=== PATIENT | male | born 1980 | race Caucasian/White ===

== ENCOUNTER 2020-08-20 10:43 | Emergency (ER) | payer OTHER, SELFPAY ==
[2020-08-20 11:08] VITALS: BP 135/96; PULSE 89; RESP 16; TEMP 36.9
--- NOTE | 2020-08-20 11:37 | ED.SKABFB ---
HPI - Skin/Abscess/Foreign Bdy General Chief complaint: Skin/Abscess/Foreign Body Stated complaint: Spider bite - 1 week ago Time Seen by Provider: 08/20/20 10:52 Source: patient Mode of arrival: ambulatory Limitations: no limitations History of Present Illness HPI narrative: Patient is a 39-year-old male who presents complaining of insect bite to right lower back. He reports mowing lawn and feeling a bite. He reports increased redness and swelling over the past 2 days. Patient concerned because of complex medical history which includes diabetes Related Data Allergies Allergy/AdvReac Type Severity Reaction Status Date / Time Sulfa (Sulfonamide Allergy Severe DIFFUSE Verified 04/24/18 12:25 Antibiotics) RASH, DIFFICULTY BREATHING Penicillins Allergy Swelling Verified 08/20/20 11:11 Review of Systems Review of Systems: Narrative: CONSTITUTIONAL: Denies fever, chills, or sweats. EYES: Denies visual changes, redness, or discharge. ENT: Denies rhinorrhea, congestion, sore throat, or otalgia. CARDIOVASCULAR: Denies chest pain, palpitations, or edema. RESPIRATORY: Denies cough or dyspnea. GASTROINTESTINAL: Denies abdominal pain, nausea, vomiting, or diarrhea. GENITOURINARY: Denies dysuria or hematuria. SKIN: Insect bite to right lower back MUSCULOSKELETAL: Denies back pain, joint pain, or myalgia. NEUROLOGIC: Denies headache, numbness, dizziness, or weakness. PSYCHIATRIC: Denies anxiety or depression. [facility] Past Medical History Medical History Angina pectoris Anxiety Back pain Diabetes Elevated cholesterol GERD (gastroesophageal reflux disease) HTN (hypertension) Opiate use Peripheral neuropathy Surgical History Surgical History H/O cardiac catheterization History of appendectomy History of heart artery stent Family History Family History Other Alcohol abuse Arthritis Cancer Cerebrovascular accident Depression Heart disease Lung cancer Social History Social History (Updated 08/20/20 @ 12:26 by GRIS Pizarro) Smoking status: Current every day smoker Tobacco type: cigarettes Alcohol intake: never Substance use: current Substance use type: marijuana Living arrangements: with family Comments At the time of signature, I have reviewed and agree with nursing past medical, surgical, social, and family history unless otherwise noted. Please see nursing chart for further information. There is no relevant family history pertinent to the presenting complaint. Exam Narrative: Exam Narrative: GENERAL: Well-appearing, well-nourished, and in no acute distress. HEAD: Normocephalic, atraumatic. EYES: EOMI. No redness or drainage. Conjunctiva are normal. ENT: Mucous membranes pink and moist. CHEST: No respiratory distress. Clear to auscultation. HEART: Regular rate and rhythm. EXTREMITIES: Normal range of motion. No edema. SKIN: Approximately 2 cm area of erythema with small amount of drainage noted to right lumbar spine. NEURO: No focal deficits. Alert and oriented x3. Gait steady. PSYCH: Normal affect. No signs of depression or anxiety. Course Vital Signs Vital signs: Vital Signs Temperature 36.9 C 08/20/20 11:08 Pulse Rate 89 08/20/20 11:08 Respiratory Rate 16 08/20/20 11:08 Blood Pressure 135/96 H 08/20/20 11:08 Temperature 36.9 C 08/20/20 11:08 Pulse Rate 89 08/20/20 11:08 Respiratory Rate 16 08/20/20 11:08 Blood Pressure 135/96 H 08/20/20 11:08 Reviewed. Patient has been instructed to follow-up with his PCP regarding his blood pressure. MDM - Skin/Abscess/Foreign Bdy MDM Narrative Medical decision making narrative: Patient is small area of erythema to right lumbar spine, small amount of drainage noted, most likely insect bite. Patient be started on cephalexin at th
[2020-08-20] MEDS: TETANUS,DIPHTHERIA,AC PERTUSSIS ADULT (0.5 ML) BOOSTRIX IM (12:11)
[2020-08-20 12:12] VITALS: BP 136/86; PULSE 84; RESP 15; O2SAT 98
[2020-08-20 13:10] VITALS: BP 134/87; PULSE 88; RESP 17; O2SAT 99
== END 2020-08-20 13:12 | disposition home or self-care (01) ==
PROVIDERS: Emergency Provider Nurse Practitioner; PCP Internal Medicine
DX: S30.860A Insect bite (nonvenomous) of lower back and pelvis, initial encounter (principal); E11.9 Type 2 diabetes mellitus without complications; I10 Essential (primary) hypertension; F17.210 Nicotine dependence, cigarettes, uncomplicated; Z23 Encounter for immunization; W57.XXXA Bitten or stung by nonvenomous insect and other nonvenomous arthropods, initial encounter
CPT/HCPCS: 90471; 90715; 99283

== ENCOUNTER 2020-08-27 20:59 | Emergency (ER) | payer OTHER, SELFPAY ==
[2020-08-27 21:04] VITALS: BP 126/99; PULSE 149; RESP 14; O2SAT 97
--- NOTE | 2020-08-27 21:20 | ED.WOUNDLAC ---
HPI - Wound/Laceration General Chief Complaint: Wound/Laceration Stated Complaint: Hand lac Time Seen by Provider: 08/27/20 21:09 Source: patient Mode of arrival: ambulatory Limitations: no limitations History of Present Illness HPI narrative: Patient is a 39-year-old male complaining of accidentally cutting his hand on sharp metal object while working. Patient denies any other pain or injuries. Patient states that he recently had tetanus shot. Related Data Allergies Allergy/AdvReac Type Severity Reaction Status Date / Time Sulfa (Sulfonamide Allergy Severe DIFFUSE Verified 04/24/18 12:25 Antibiotics) RASH, DIFFICULTY BREATHING Penicillins Allergy Swelling Verified 08/20/20 11:11 Review of Systems Review of Systems: All systems reviewed & are unremarkable except as noted in HPI and below PMFSH Past Medical History Medical History Angina pectoris Anxiety Back pain Diabetes Elevated cholesterol GERD (gastroesophageal reflux disease) HTN (hypertension) Opiate use Peripheral neuropathy Surgical History Surgical History H/O cardiac catheterization History of appendectomy History of heart artery stent Family History Family History Other Alcohol abuse Arthritis Cancer Cerebrovascular accident Depression Heart disease Lung cancer Social History Social History Smoking status: Current every day smoker Tobacco type: cigarettes Alcohol intake: never Substance use: current Substance use type: marijuana Gender identity (if verbalized by the patient): Male Exam Const: General: no acute distress and alert Orientation/consciousness: patient oriented x3 HENMT: Head: normal to inspection Eyes: Conjunctivae: conjunctivae normal Neck: Neck: normal visual inspection Resp: Effort & Inspection: normal respiratory effort Skin: General skin exam: normal color Neuro: General: patient oriented x3 and moves all extremities Extrem: Other: 2 cm superficial laceration third digit left hand 1.5 centimeter superficial laceration second digit left hand Neurovascular is intact bilateral upper extremities Course Vital Signs Vital signs: Vital Signs Pulse Rate 149 H 08/27/20 21:04 Respiratory Rate 14 08/27/20 21:04 Blood Pressure 126/99 H 08/27/20 21:04 Pulse Oximetry 97 08/27/20 21:04 Pulse Rate 149 H 08/27/20 21:04 Respiratory Rate 14 08/27/20 21:04 Blood Pressure 126/99 H 08/27/20 21:04 Pulse Oximetry 97 08/27/20 21:04 Procedures Laceration Laceration 1: Date: 08/27/20 Site: hand Side (If applicable): left Size (cm): 2 Description: linear Depth: simple, single layer ====== Skin Level ====== Skin layer closed with: dermabond ====== Subcutaneous Layer ====== ====== Muscle Layer ====== ====== Tendon Layer ====== Laceration 2: Date: 08/27/20 Time: 22:44 Site: hand Size (cm): 1.5 Description: linear Pre-repair: wound explored and irrigated ====== Skin Level ====== Skin layer closed with: dermabond ====== Subcutaneous Layer ====== ====== Muscle Layer ====== ====== Tendon Layer ====== Discharge Plan Discharge Clinical Impression: Laceration Patient Disposition: Home, Self-Care Condition: Improved Instructions: Skin Adhesive Care (ED) Prescriptions: No Action clindamycin HCl 150 mg capsule 450 mg PO TID 5 Days Qty: 45 RF: 0 Follow-up/Referrals: Tye,Tameka Mendes MD [Primary Care Provider] - 08/30/20 Time of Disposition: 22:45
[2020-08-27 23:19] VITALS: BP 141/87; PULSE 88; RESP 16; TEMP 36.7; O2SAT 98
== END 2020-08-27 23:19 | disposition home or self-care (01) ==
PROVIDERS: Emergency Provider Emergency Medicine; PCP Internal Medicine
DX: S61.213A Laceration without foreign body of left middle finger without damage to nail, initial encounter (principal); S61.211A Laceration without foreign body of left index finger without damage to nail, initial encounter; E78.00 Pure hypercholesterolemia, unspecified; K21.9 Gastro-esophageal reflux disease without esophagitis; I10 Essential (primary) hypertension; E11.42 Type 2 diabetes mellitus with diabetic polyneuropathy; Z95.5 Presence of coronary angioplasty implant and graft; F17.210 Nicotine dependence, cigarettes, uncomplicated; W26.8XXA Contact with other sharp object(s), not elsewhere classified, initial encounter
CPT/HCPCS: 12002; 99282